=== PATIENT | male | born 1970 | race Caucasian/White ===

== ENCOUNTER 2020-12-25 08:11 | Observation (INO) | payer MEDICAID, SELFPAY ==
[2020-12-25] VITALS (44 sets, daily range): BP systolic 123–211; BP diastolic 69–123; PULSE 91–114; RESP 16–22; TEMP 36.4–37.5; O2SAT 93–97; BMI 37.0
--- NOTE | ~2020-12-25 | XR_ITS ---
XR chest 1V portable DATE: 12/25/2020 08:46 INDICATION: Cough. Covid-positive. TECHNIQUE: Portable upright AP chest on 12/25/2020 at 0836 hours COMPARISON: None FINDINGS: There are patchy bilateral central and lower lung zone infiltrates, greatest in the left artie ng base. Heart size appears borderline. There is aortic calcification and mild unfolding. Pulmonary vascular congestion and redistribution or suggested. There is minimal if any pleural effusion. No pneumothorax. Degenerative spurring of the thoracic spine. IMPRESSION: Bilateral relatively central and lower lung zone infiltrates; diffusion diagnosis include s pneumonia and/or congestive heart failure/pulmonary edema. Reviewed, dictated and finalized at location A. IMPRESSION: Bilateral relatively central and lower lung zone infiltrates; diffu rupesh diagnosis includes pneumonia and/or congestive heart failure/pulmonary francisco j art.
--- NOTE | ~2020-12-25 | CT_ITS ---
EXAMINATION: CTA chest PE protocol DATE: 12/25/2020 10:54 INDICATION: Shortness of breath, elevated d-dimer. Covid-positive. TECHNIQUE: Computed tomography angiography (CTA) of the chest was performed with 100 mL Omnipaque-350 intravenous contrast timed to evaluate the pulmonary arteries. Coronal maximum intensity projection 3D-reconstructions were created by the technologist. Automated exposure control and iterative reconst ruction technique were employed. Exam dose: 1000.58 mGy-cm total exam DLP. COMPARISON: 12/25/2020 portable AP chest FINDINGS: Despite second contrast material injection there is only moderate opacification of the pulm onary arteries. No detectable central pulmonary embolism is noted. The peripheral pulmonary nodule no t optimally demonstrated due to suboptimal contrast opacification and motion. No thoracic aortic aneurysm or dissection. Heart size is normal. No pericardial or pleural effusion. There is mild likely reactive hilar and mediastinal lymph node prominence. There are scattered bilateral patchy pulmonary infiltrates involving all lobes, most severe in the le ft lower lobe, likely due to multifocal Covid pneumonia. No suspicious osteolytic or osteoblastic lesions are noted. IMPRESSION: Limited examination; no central pulmonary embolism is identified. Peripheral pulmonary n odule optimally evaluated Multifocal bilateral pulmonary infiltrates, likely secondary to Covid pneumonia Reviewed, dictated and finalized at Location A. Reviewed, dictated and finalized at location A. IMPRESSION: Limited examination; no central pulmonary embolism is identified. Peripheral pulmonary nodule optimally evaluated Multifocal bilateral pulmonary infiltrates, likely secondary to Covid pneumonia
--- NOTE | ~2020-12-25 | CT_ITS ---
EXAMINATION: CT abdomen pelvis wo con DATE: 12/25/2020 13:46 INDICATION: Flank pain. Nausea and vomiting. Covid-positive. TECHNIQUE: Computed tomography (CT) of the abdomen and pelvis was performed without intravenous contr ast. Automated exposure control and iterative reconstruction technique were employed. Exam dose: 142 7.41 mGy-cm total exam DLP. COMPARISON: None. FINDINGS: There are patchy infiltrates of the middle lobe and lingula and prominent patchy consolidat ing infiltrates in both lower lobes, left greater than right. Normal heart size. No pericardial or pleural effusion. There is diffuse hepatic steatosis with minimal sparing adjacent to the gallbladder. No hepatic space -occupying mass lesion is detected. The gallbladder is present. There is relatively high density cont ent within the gallbladder lumen. Consider ultrasound for further evaluation as clinically appropriat e. No pericholecystic fluid or fat stranding. No bile duct or pancreatic duct dilatation. No pancreat ic mass lesion or calcification. Normal splenic size. Normal morphology of the adrenal glands. Approximately 11 mm upper pole left renal probable cyst. No other renal mass lesion or urinary tract calculus or hydroureteronephrosis is detected. There is mucosal trabeculation and minimal diverticulum formation of the urinary bladder. Normal caliber of the abdominal aorta. No intraperitoneal or retroperitoneal or pelvic mass lesion or adenopathy or ascites. Normal appendix. No bowel obstruction, bowel wall thickening, pneumatosis or intraperitoneal free air . Small bilateral fat-containing inguinal hernias. Degenerative spurring of the thoracic and lumbar spine. No suspicious osteolytic or osteoblastic lesi ons. The IMPRESSION: Bilateral multifocal pneumonia Hepatic steatosis 11 mm upper pole left renal probable cyst Reviewed, dictated and finalized at Location A. Reviewed, dictated and finalized at location A.
--- NOTE | 2020-12-25 08:26 | ECG_ITS ---
Measurements Intervals [place] Rate: 108 P: 48 AL: 141 QRS: 254 QRSD: 154 T: -8 QT: 363 QTc: 487 Interpretive Statements SINUS TACHYCARDIA RIGHT AXIS DEVIATION RIGHT BUNDLE BRANCH BLOCK BASELINE WANDER- AVF, V3 ABNORMAL ECG Electronically Signed On 12-25-2020 13:28:21 CDT by Kp Valenzuela D.O.
--- NOTE | 2020-12-25 08:30 | PC.NURSE ---
pt mother came to room with pt. advised that pt could have no visitor due to pt being positive covid. mother responded with tough titties . made aware that she would have to leave facility. pt argued with rn that she lives with pt and should be allowed to stay. edp also told mother that she would have to leave room due to pt being covid positive. mother voiced disrespect for chapis kristel. made aware of hospital policies and pt left room. discharge planner aware.
[2020-12-25 08:39] LABS: Basophils Percent Auto 0.2 % (0.2-1.2); Hematocrit 44.3 % (42.0-52.0); Hemoglobin 15.4 g/dL (14.0-18.0); Immature Granulocyte Absolute 0.01 K/mm3 (0.00-0.031); Immature Granulocyte Percent A 0.2 % (0-0.5); Lymphocytes Absolute Auto 0.62 K/mm3 (0.9-3.2); Lymphocytes Percent Auto 12.6 % (18.3-44.2); Mean Corpuscular HGB Conc 34.8 g/dl (32-36); Mean Corpuscular Hemoglobin 30.7 pg (26-34); Mean Corpuscular Volume 88.4 fl (80-100); Monocytes Absolute Auto 0.1 K/mm3 (0.1-0.6); Monocytes Percent Auto 2.6 % (2.6-8.5); Neutrophils Absolute Auto 4.2 K/mm3 (1.3-6.7); Neutrophils Percent Auto 84.4 % (45.5-73.1); Platelet Count Result 156 k/mm3 (150-375); Red Blood Count 5.01 M/mm3 (4.6-6.20); Red Cell Distribution Width 12.2 % (11.5-14.5); White Blood Count 4.9 K/mm3 (4.5-10.0)
[2020-12-25 08:49] LABS: INR 0.9; Prothrombin Time 11.9 Seconds (11.1-14.7)
[2020-12-25 08:50] LABS: Partial Thromboplastin Time 26.7 SECONDS (22.3-36.8)
[2020-12-25 09:00] LABS: Troponin I < 0.012 ng/mL (0.000-0.034)
--- NOTE | 2020-12-25 09:00 | ED.GENADULT ---
HPI - General Adult General Chief complaint: Chest Pain Stated complaint: vomting/dizzy Time Seen by Provider: 12/25/20 08:14 Source: patient and RN notes reviewed Mode of arrival: ambulatory Limitations: no limitations History of Present Illness HPI narrative: This is a 50 year old COVID + male who presents for evaluation of multiple complaints. He states he was exposed to covid at work so he was tested on Saturday, and he was found to be positive. He was asymptomatic at that time but he developed symptoms 2 days later. Over the past couple of days he reports fatigue, cough, right flank pain and diarrhea. He developed left chest pressure that is nonradiating last night and it has been constant. He started having nausea , vomiting dizziness this morning. He states his initial episodes of emesis was nonbloody , nonbilious. He reports afterwards his emesis is coffee ground. His last bowel movement was last night and he denies melena or blood in his stool. He has not seen doctor in 20 years . Related Data Home Medications Medication Instructions Recorded Confirmed No Home Medications 12/25/20 12/25/20 Allergies Allergy/AdvReac Type Severity Reaction Status Date / Time cranberries Allergy Mild headache, Uncoded 12/25/20 17:18 [email or web address] Allergy Mild Headache Uncoded 12/25/20 17:18 Review of Systems Review of Systems: All systems reviewed & are unremarkable except as noted in HPI and below Constitutional: Constitutional: Reports fever(s) ENT: Reports nasal congestion Cardiovascular: Cardiovascular: Reports chest pain Respiratory: Respiratory: Reports chest congestion, Reports cough and Reports dyspnea Gastrointestinal: Gastrointestinal: Denies abdominal pain, Reports diarrhea, Reports nausea and Reports vomiting Neurologic: Reports dizziness and Denies focal weakness [facility] Past Medical History Medical History (Updated 12/25/20 @ 18:58 by Hyacinth Mensah MD) Patient denies medical problems Surgical History Surgical History (Updated 12/25/20 @ 09:02 by Hyacinth Mensah MD) No significant past surgical history Family History Family History (Updated 12/25/20 @ 09:01 by Hyacinth Mensah MD) Father Heart disease Social History Social History (Updated 12/25/20 @ 15:43 by Maria Del Carmen Sewell PA-C) Social History: Patient lives in [place]. He is not currently employed. Nonsmoker. Smoking status: Never smoker Alcohol intake: current Drinks per week: 2 Substance use: never Gender identity (if verbalized by the patient): Male Spiritual care concerns: No Exam Const: General: no acute distress and alert Orientation/consciousness: patient oriented x3 Eyes: EOM: EOMs intact bilaterally Resp: Effort & Inspection: normal respiratory effort and no retractions Auscultation: clear to auscultation bilaterally Cardio: Rate: tachycardic Rhythm: regular rhythm Heart sounds: no murmurs GI: GI Palp: Yes Soft to palpation, Yes Tenderness to palpation present (GI) (LLQ), No Guarding due to palpation present (GI) and No Rigid due to palpation Auscultation: normal bowel sounds Skin: General skin exam: normal color Rashes: no rashes Neuro: General: patient oriented x3, moves all extremities and CN's II-XI intact bilaterally Extrem: General: normal to inspection Psych: Mental Status: mental status grossly normal Affect: normal affect Course Reevaluation(s) Reevaluation #1: Patient continues to complain of flank pain. UA is normal. He does have significant covid. He understands he will be admitted. Date: 12/25/20 Time: 12:30 Consultations Consultation #1: I Discussed case with Maria Del Carmen Sewell. She accepts this patient with covid pneumonia, left chest pain with high risk factors. She accepts patient to IMU Date: 12/25/20 Time: 12:45 Vital Signs Vital signs: Vital Signs Pulse Rate 107 H 12/25/20 08:23 Respiratory Rate 19 12/25/20 08:23 Temperature 99.
[2020-12-25 09:06] LABS: Alanine Aminotransferase 65 U/L (4-50); Albumin Level 4.4 g/dL (3.5-5.1); Alkaline Phosphatase 88 U/L (38-126); Anion Gap 11 mmol/L (8-16); Aspartate Amino Transferase 48 U/L (17-59); Bilirubin,Total 0.7 mg/dL (0.2-1.3); Blood Urea Nitrogen 13 mg/dL (9-20); Carbon Dioxide 22 mmol/L (22-30); Chloride 100 mmol/L (98-107); Estimated CRCL calculation 128 ml/min; Estimated Glomerular Filt Rate > 60; Glucose 199 mg/dL (65-110); Lipase 91 U/L (23-300); Magnesium 1.6 mg/dL (1.6-2.3); Potassium 3.9 mmol/L (3.4-5.0); Sodium 133 mmol/L (137-145)
[2020-12-25] MEDS: SODIUM CHLORIDE 0.9% IV 1,000 ML 999 ML IV CONT (09:19)
[2020-12-25] MEDS: MORPHINE SULFATE (*CRX) 4 MG/ML INJ IV PUSH ×2 (09:19→12:53)
[2020-12-25] MEDS: ONDANSETRON INJ 4 MG/2 ML VIAL IV PUSH ×2 (09:19→12:53)
[2020-12-25 09:32] LABS: Add Urine Microscopic? YES; Appearance Urine Clear (Clear); Bilirubin Urine Negative (Negative); Blood Urine 1+ (Negative); Color Urine Amber (Yellow); Glucose Urine UA 1+ mg/dL (Negative); Ketones Urine 2+ mg/dL (Negative); Leukocyte Esterase Ur Negative LEU/UL (Negative); Mucus Urine Rare /lpf; Nitrate Urine Negative (Negative); Protein Urine 3+ mg/dL (Negative); RBC Urine 0-2 /hpf (0-2); Urobilinogen Urine Negative mg/dL (<2.0); WBC Urine 0-3 /hpf
[2020-12-25] MEDS: PANTOPRAZOLE SODIUM IV 40 MG VIAL IV PUSH ×2 (09:36→17:23)
[2020-12-25 10:05] LABS: Specific Grav Ur 1.031 (1.001-1.035)
[2020-12-25 10:06] LABS: D Dimer 0.67 ug/mL (<0.48)
--- NOTE | 2020-12-25 12:35 | PC.NURSE ---
walked around the nurses station with ambulatory pulse ox and pt. saturated at 91 the entire lap.
[2020-12-25 12:41] LABS: Troponin I 0.014 ng/mL (0.000-0.034)
[2020-12-25] MEDS: NITROGLYCERIN SL 0.4 MG TABLET SUBLINGUAL (12:53)
--- NOTE | 2020-12-25 13:00 | PC.NURSE ---
pt continues to note dizziness upon standing. states back pain much improved from 11/12 to 06/15. intermittent nausea. only noting chest pain with deep inspiration.
--- NOTE | 2020-12-25 15:30 | PM.IMHP ---
H&P: HPI History of Present Illness Date/Time: 12/25/20 15:30 Chief Complaint: Chest pain. Narrative: This is a 50-year-old male with no known medical history although he has not seen a physician for over 20 years who presented to the emergency department earlier today via private vehicle for evaluation of chest pain. He has not felt well for quite a week and tested positive for COVID-19 this past Saturday. His symptoms have consisted mainly of fatigue, chills, sweats, diarrhea, occasional cough, and right-sided pain that he has a difficult time describing. Last evening he developed mild, left anterior chest pressure which was pretty consistent thus he came in for evaluation today. This morning he also reports nausea with a couple of episodes of emesis as well as dizziness and he thinks that the last episode of emesis looked like coffee grounds. CTA of the chest was ordered to evaluate for possible pulmonary embolism and that was negative for central PE though the study was somewhat limited. Multifocal bilateral pulmonary infiltrates were also noted, likely due to COVID pneumonia. EKG demonstrated a somewhat atypical appearing right bundle branch block pattern but troponins have been negative x3. With further questioning he does mention that he has had 3 episodes of ?feeling like my heart stops, then it races for a while? over the past several years. It is not necessarily related to activity he does not think that his heart rate was irregular. He denies exertional chest pain and shortness of breath. His father of a heart attack in his early 50s. He has no known history of hypertension (blood pressures have been consistently in the 150s to 170 systolic) or diabetes (random glucose was 199). He was not vaccinated for COVID. Review of Systems Review of Systems: Twelve systems were reviewed with pertinent positives and negatives as per HPI. No headache. He denies auditory and visual changes. No focal weakness or paresthesias. No syncope or near syncope. No known history of cardiac dysrhythmia. He denies orthopnea. Reports occasional PND. No known history of sleep apnea. Denies blurry vision, polydipsia, and polyuria. No paresthesias. No dysuria or hematuria. No melena or hematochezia. Except as documented, all other systems were reviewed and are negative. [facility] Past Medical History Medical History Patient denies medical problems Surgical History Surgical History No significant past surgical history Family History Family History (Updated 12/25/20 @ 23:11 by Maria Del Carmen Sewell PA-C) Father Heart disease Acute myocardial infarction Social History Social History (Updated 12/25/20 @ 23:11 by Maria Del Carmen Sewell PA-C) Social History: The patient lives in [place]. 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 Nonsmoker. No alcohol or illicit substance abuse. He designates his mother, Rose Qureshi, as his surrogate decision maker. Code status: Full code. Meds Home Medications and Allergies Home Medications Medication Instructions Recorded Confirmed Type No Home Medications 12/25/20 12/25/20 History Allergies Allergy/AdvReac Type Severity Reaction Status Date / Time cranberries Allergy Mild headache, Uncoded 12/25/20 17:18 [email or web address] Allergy Mild Headache Uncoded 12/25/20 17:18 Vital Signs Vital Signs - 24 hr 12/25/20 08:23 12/25/20 08:24 12/25/20 08:30 Temperature 97.6 F Pulse Rate 107 H 107 H 107 H Respiratory Rate 19 22 H Blood Pressure 178/118 H 178/118 H Pulse Oximetry 94 12/25/20 08:31 12/25/20 08:45 12/25/20 08:46 Temperature Pulse Rate 109 H 113 H 113 H Respiratory Rate Blood Pressure 170/114 H 165/109 H Pulse Oximetry 12/25/20 08:48 12/25/20 09:00 12/25/20 09:15 Temperature Pulse Rate 108 H 114 H 110 H Respiratory Rate Blood Pressure Pulse Oximetry 12/25/20 09:30 12/25
[2020-12-25 16:56] LABS: Lactate Dehydrogenase 696 U/L (313-618)
--- NOTE | 2020-12-25 17:03 | ADMGEN ---
This patient, Thanh Qureshi, was admitted to IMU Room 209-01. Patient/family oriented to hospital policies and general routines including ID bracelet, bed and alarms, visiting hours, pain management, procedures, bathroom and other care routines, personal items, smoking policy, room service/diet, and visiting hours. Information on how to activate the Rapid Response Team has been discussed. Patient/Family are encouraged to report perceived risks to care and to ask questions if they do not understand what they are told or what they should do.
[2020-12-25 17:04] LABS: Hemoglobin A1C 7.8 % (<5.7)
[2020-12-25] MEDS: SODIUM CHLORIDE 0.9% IV 1,000 ML 125 ML IV CONT (17:19)
[2020-12-25] MEDS: ENOXAPARIN 40 MG/0.4 ML SYRINGE SUB-Q (17:22)
[2020-12-25 17:34] LABS: Procalcitonin 0.2 ng/mL
[2020-12-25 17:40] LABS: Troponin I 0.017 ng/mL (0.000-0.034)
[2020-12-25 20:50] LABS: Glucose Point of Care 161 mg/dl (65-105)
[2020-12-26] VITALS (14 sets, daily range): BP systolic 157–164; BP diastolic 94–97; PULSE 83–101; RESP 18–20; TEMP 36.2–36.9; O2SAT 92–99
[2020-12-26 05:57] LABS: Basophils Percent Auto 0.2 % (0.2-1.2); Hematocrit 40.2 % (42.0-52.0); Hemoglobin 13.3 g/dL (14.0-18.0); Immature Granulocyte Absolute 0.02 K/mm3 (0.00-0.031); Immature Granulocyte Percent A 0.5 % (0-0.5); Lymphocytes Absolute Auto 1.22 K/mm3 (0.9-3.2); Lymphocytes Percent Auto 28.3 % (18.3-44.2); Mean Corpuscular HGB Conc 33.1 g/dl (32-36); Mean Corpuscular Hemoglobin 30.6 pg (26-34); Mean Corpuscular Volume 92.6 fl (80-100); Monocytes Absolute Auto 0.2 K/mm3 (0.1-0.6); Monocytes Percent Auto 3.7 % (2.6-8.5); Neutrophils Absolute Auto 2.9 K/mm3 (1.3-6.7); Neutrophils Percent Auto 67.3 % (45.5-73.1); Platelet Count Result 170 k/mm3 (150-375); Red Blood Count 4.34 M/mm3 (4.6-6.20); Red Cell Distribution Width 12.4 % (11.5-14.5); White Blood Count 4.3 K/mm3 (4.5-10.0)
[2020-12-26 06:13] LABS: Alanine Aminotransferase 50 U/L (4-50); Albumin Level 3.6 g/dL (3.5-5.1); Alkaline Phosphatase 69 U/L (38-126); Anion Gap 9 mmol/L (8-16); Aspartate Amino Transferase 45 U/L (17-59); Bilirubin,Total 0.6 mg/dL (0.2-1.3); Blood Urea Nitrogen 12 mg/dL (9-20); Calcium 8.3 mg/dL (8.4-10.2); Carbon Dioxide 27 mmol/L (22-30); Chloride 95 mmol/L (98-107); Estimated CRCL calculation 133 ml/min; Estimated Glomerular Filt Rate > 60; Glucose 147 mg/dL (65-110); Potassium 3.6 mmol/L (3.4-5.0); Sodium 131 mmol/L (137-145)
[2020-12-26 08:50] LABS: Glucose Point of Care 172 mg/dl (65-105)
[2020-12-26] MEDS: PANTOPRAZOLE SODIUM IV 40 MG VIAL IV PUSH ×2 (09:50→17:21)
[2020-12-26 12:29] LABS: Glucose Point of Care 131 mg/dl (65-105)
--- NOTE | 2020-12-26 15:45 | ECHO_ITS ---
Patient Info Name: Thanh Qureshi Age: 50 years : 1970 Gender: Male Ht: 72 in Wt: 249 lbs BSA: 2.43 m2 HR: 91 bpm BP: 163 / 94 mmHg Heart Rhythm: Sinus Rhythm Exam Date: 12/26/2020 10:31 AM Exam Location: [facility] Patient Status: Inpatient Admit Date: 12/25/2020 Staff Ordering Physician: Maria Del Carmen Sewell PA-C Director Of Compensation: Josh Edwards RDCS, RT Attending Provider: Lj Toscano MD Referring Physician: Melodie HOGUE; Exam Type: CA echo doppler color flow Study Info Indications R07.9 - Chest pain, unspecified Complete two-dimensional, color flow and Doppler transthoracic echocardiogram is performed. Strain analysis performed. Summary 1. Complete two-dimensional, color flow and Doppler transthoracic echocardiogram is performed. 2. Strain analysis performed. 3. Left ventricular chamber dimension is normal. 4. Left ventricular systolic function is normal, estimated at 60-65%. 5. There is moderately increased left ventricular wall thickness. 6. The left ventricular diastolic function is grade I diastolic dysfunction. 7. Global longitudinal strain is abnormal at -10 %. 8. Dilated inferior vena cava with <50% collapse upon inspiration consistent with elevated right atrial pressure, 15 mmHg. Left Ventricle Left ventricular chamber dimension is normal. Left ventricular systolic function is normal, estimated at 60-65%. There is moderately increased left ventricular wall thickness. The left ventricular diastolic function is grade I diastolic dysfunction. Global longitudinal strain is abnormal at -10 %. Right Ventricle Right ventricular chamber dimension is normal. Right ventricular systolic function is normal. Left Atria Left atrial chamber dimension is normal. Right Atria Right atrial chamber dimension is normal. Atrial Septum Intact interatrial septum visualized by color flow imaging. Aortic Valve The aortic valve is trileaflet. There is no aortic valve sclerosis. There is no aortic valve stenosis. There is trace aortic valve regurgitation. Pulmonic Valve The pulmonic valve is not well visualized. There is no pulmonic valve stenosis. There is trace pulmonic regurgitation. Mitral Valve The mitral valve has normal leaflets. There is no mitral valve stenosis. There is trace mitral valve regurgitation. Tricuspid Valve The tricuspid valve leaflets are normal. There is no significant tricuspid valve stenosis. There is trace tricuspid valve regurgitation. Pericardium/Pleural The pericardium appears normal. There is no pericardial effusion. Inferior Vena Cava Dilated inferior vena cava with <50% collapse upon inspiration consistent with elevated right atrial pressure, 15 mmHg. Aorta The aortic root size at the sinus of Valsalva is normal. The prox ascending aorta size is normal. Left Ventricular Outflow Tract Name Value Normal LVOT 2D LVOT Diameter 2.1 cm LVOT Doppler LVOT Peak Gradient 5 mmHg LVOT Mean Gradient 3 mmHg LVOT VTI 19 cm
--- NOTE | 2020-12-26 17:19 | PM.IMPN ---
Progress Note: A&P Assessment and Plan (1) Pneumonia due to COVID-19 virus: Code(s): U07.1 - COVID-19; J12.82 - Pneumonia due to coronavirus disease 2019 Status: Acute Assessment and Plan: No indication for antibiotics. At this time he has no oxygen requirement thus is not a candidate for dexamethasone or remdesivir. continue to monitor respiratory status (2) Chest pain: Code(s): R07.9 - Chest pain, unspecified Status: Acute Assessment and Plan: Most likely related to pneumonia. No evidence of central pulmonary emboli on imaging though study was limited. PE is felt to be less likely but CTA could be repeated if his chest pain returns or he has worsening shortness of breath. no st changes on EKG, flat troponins. Wells 0, CTA not indicated (3) Abnormal EKG: Code(s): R94.31 - Abnormal electrocardiogram [ECG] [EKG] Status: Acute Assessment and Plan: EKG shows a right bundle branch block with somewhat unusual changes. Troponin has been negative x3. Given family history will obtain echocardiogram. (4) Hyperglycemia: Code(s): R73.9 - Hyperglycemia, unspecified Status: Acute Assessment and Plan: Random glucose is nearly 200 with 1+ glucose in the urine. Check fasting level and hemoglobin A1c. (5) Elevated blood pressure reading: Code(s): R03.0 - Elevated blood-pressure reading, without diagnosis of hypertension Status: Acute Assessment and Plan: I suspect the patient has underlying hypertension, most recent blood pressure was 148/69. Will continue to monitor overnight but he will likely need to be started on antihypertensives. (6) Suspected sleep apnea: Code(s): R29.818 - Other symptoms and signs involving the nervous system Status: Acute Assessment and Plan: Apnea link ordered. Additional Plan likely discharge tomorrow in am if continuing to tolerate room air Time Spent With Patient Time with patient: less than 15 minutes Subjective Date/time seen: 12/26/20 17:19 no acute medical complaints. No breathing difficulty Review of Systems Review of Systems: All systems reviewed & are unremarkable except as noted in HPI and below ROS unobtainable: Yes unobtainable due to mental status Exam Const: General: no acute distress Neck: Neck: no JVD Cardio: Rate: regular rate Rhythm: regular rhythm GI: GI Palp: Yes Soft to palpation and No Tenderness to palpation present (GI) Objective Data Vital Signs Vital Signs: Vital Signs - 24 hr 12/25/20 18:00 12/25/20 20:00 12/25/20 22:00 Temperature 97.6 F Pulse Rate 92 95 91 Respiratory Rate 20 Blood Pressure 148/69 H Pulse Oximetry 93 12/25/20 23:34 12/26/20 00:00 12/26/20 02:00 Temperature 98.7 F Pulse Rate 92 85 101 H Respiratory Rate 20 Blood Pressure 144/69 H Pulse Oximetry 95 93 12/26/20 03:08 12/26/20 04:00 12/26/20 06:00 Temperature 97.4 F L Pulse Rate 92 99 Respiratory Rate 18 Blood Pressure 163/94 H Pulse Oximetry 94 96 12/26/20 07:06 12/26/20 08:00 12/26/20 09:04 Temperature 97.9 F Pulse Rate 86 86 Respiratory Rate 18 Blood Pressure 164/97 H Pulse Oximetry 99 92 12/26/20 10:00 12/26/20 12:00 12/26/20 12:51 Temperature 97.1 F L Pulse Rate 99 97 88 Respiratory Rate 20 Blood Pressure 157/94 H Pulse Oximetry 94 12/26/20 14:00 Temperature Pulse Rate 90 Respiratory Rate Blood Pressure Pulse Oximetry Intake/Output Intake/Output: Intake & Output 12/23/20 12/24/20 12/25/20 12/26/20 23:59 23:59 23:59 23:59 Intake Total 1240 1600 Output Total 1000 Balance 1240 600 Meds/Results Medications: Active Medications Generic Name Dose Route Start Last Admin Trade Name Nathanq PRN Reason Stop Dose Admin Acetaminophen 650 mg 12/26/20 17:19 Acetaminophen 325 Mg Tablet PO Q6H PRN Mild Pain (1-3) or Fever Albuterol 2 puff 12/25/20 15
[2020-12-26] MEDS: ENOXAPARIN 40 MG/0.4 ML SYRINGE SUB-Q (17:21)
[2020-12-26] MEDS: ACETAMINOPHEN 325 MG TABLET 650 MG PO (17:33)
[2020-12-26 17:37] LABS: Glucose Point of Care 177 mg/dl (65-105)
[2020-12-26] MEDS: diphenhydrAMINE HCl CAP 25 MG CAPSULE 50 MG PO (18:00)
[2020-12-26 20:46] LABS: Glucose Point of Care 150 mg/dl (65-105)
--- NOTE | 2020-12-27 06:02 | PCRCNOTE ---
Went to remove Apnealink from pt for download and discovered that he had taken the unit off himself, he stated around 0100. He said he couldn't tolerate it because he was coughing a lot. RN notified.
[2020-12-27 07:30] LABS: Basophils Percent Auto 0.2 % (0.2-1.2); Hematocrit 41.9 % (42.0-52.0); Immature Granulocyte Absolute 0.01 K/mm3 (0.00-0.031); Immature Granulocyte Percent A 0.2 % (0-0.5); Lymphocytes Absolute Auto 1.05 K/mm3 (0.9-3.2); Lymphocytes Percent Auto 23.4 % (18.3-44.2); Mean Corpuscular HGB Conc 33.4 g/dl (32-36); Mean Corpuscular Hemoglobin 30.2 pg (26-34); Mean Corpuscular Volume 90.5 fl (80-100); Mean Platelet Volume 10.7 fl (7.4-10.4); Monocytes Absolute Auto 0.2 K/mm3 (0.1-0.6); Monocytes Percent Auto 5.1 % (2.6-8.5); Neutrophils Absolute Auto 3.2 K/mm3 (1.3-6.7); Neutrophils Percent Auto 71.1 % (45.5-73.1); Platelet Count Result 206 k/mm3 (150-375); Red Blood Count 4.63 M/mm3 (4.6-6.20); Red Cell Distribution Width 12.4 % (11.5-14.5); White Blood Count 4.5 K/mm3 (4.5-10.0)
[2020-12-27 07:40] LABS: Alanine Aminotransferase 57 U/L (4-50); Alkaline Phosphatase 70 U/L (38-126); Anion Gap 7 mmol/L (8-16); Aspartate Amino Transferase 46 U/L (17-59); Bilirubin,Total 0.8 mg/dL (0.2-1.3); Blood Urea Nitrogen 11 mg/dL (9-20); Calcium 8.5 mg/dL (8.4-10.2); Carbon Dioxide 29 mmol/L (22-30); Chloride 99 mmol/L (98-107); Estimated CRCL calculation 119 ml/min; Estimated Glomerular Filt Rate > 60; Glucose 147 mg/dL (65-110); Phosphorus 3.2 mg/dL (2.5-4.5); Potassium 3.4 mmol/L (3.4-5.0); Sodium 135 mmol/L (137-145)
[2020-12-27 08:00] VITALS: O2SAT 93
[2020-12-27] MEDS: lisinopriL 2.5 MG TABLET PO (09:18)
[2020-12-27 09:21] LABS: Glucose Point of Care 153 mg/dl (65-105)
[2020-12-27] MEDS: PANTOPRAZOLE SODIUM IV 40 MG VIAL IV PUSH (09:22)
[2020-12-27] MEDS: ACETAMINOPHEN 325 MG TABLET 650 MG PO (09:27)
[2020-12-27 09:33] VITALS: BP 162/95; PULSE 83; RESP 20; TEMP 37.1; O2SAT 93
[2020-12-27 11:30] VITALS: BP 156/103
--- NOTE | 2020-12-27 16:36 | P.DS_ITS ---
DS: Admitting Diagnosis Admitting Diagnosis chest pain DS: Discharge Diagnosis Discharge Diagnosis (1) Pneumonia due to COVID-19 virus: Code(s): U07.1 - COVID-19; J12.82 - Pneumonia due to coronavirus disease 2019 Status: Acute DS: Summary Hospital Course Hospital Course: 50yo male with no diagnosed medical history presenting to the hospital for chest pain. Patient recently tested positive for COVID at outside facility and has been having fevers and cough along with associated rt sided chest pain intermittently over the last few days. In conjunction with the fact that he has intermittent headaches and lower back pain, this is all indicative of myalgias related to COVID. Furthermore, EKG and troponins not indicative of ACS, and pain is not exertional. Also, Wells score is 0, and CT angio showoing no PE. As patient is breathing on room air, he doese not qualify for dexamethasone or remdesivir. He needs some steady outpatient care, as his a1c is in range for prediabetes, and he likely has undiagnosed underlying HTN. We started him on a small dose of lisinopril and instructed to follow with PCP. Status at Discharge Functional status at discharge: independent ambulation Overall status at discharge: patient is progressing back to baseline Time Spent with Patient Time attestation: Total time spent providing and/or coordinating discharge serv ices: Time spent: Less than 30 minutes Exam Const: General: no acute distress Neck: Neck: no JVD Resp: Effort & Inspection: normal respiratory effort Auscultation: clear to auscultation bilaterally Cardio: Rate: regular rate Rhythm: regular rhythm GI: GI Palp: Yes Soft to palpation and No Tenderness to palpation present (GI) Discharge Plan Discharge Attending physician on discharge: Radha Thurman Consulting providers: Jocelyn Mack ; Maria Del Carmen Sewell ; Kp Valenzuela ; Yosi Weems Discharging Clinician: Radha Thurman Patient Disposition: Home, Self-Care Activity: no straining and as tolerated Diet: as tolerated and heart healthy Patient Instructions: Droplet Precautions (GEN), COVID-19 (Coronavirus Disease 2019) (DC), COVID-19: Slow the Coronavirus Spread (DC), Face Coverings (Masks) and COVID-19 (DC), How to Recover from COVID-19 at Home (GEN), Social Distancing Guidelines for COVID-19 (GEN) Stand Alone Forms: General Discharge Information Follow-up/Referrals: Jocelyn Mack DO [Physician] - Call for Appointment Discharge Medications: New acetaminophen [Mapap (acetaminophen)] 325 mg Tablet 650 mg PO Q6H PRN (Reason: Mild Pain (1-3) Or Fever) 10 Days Qty: 40 RF: 0 lisinopril 2.5 mg Tablet 2.5 mg PO QAM Qty: 30 RF: 0 Date of admission: 12/25/20 13:16 Primary Care Provider: PHYSICIAN,STRADDLE CARRIER OPERATOR Admitting Provider: Lj Toscano Attending physician on admission: Radha Thurman Condition: Stable Quality VTE Prophylaxis VTE prophylaxis: pharmacologic ordered
== END 2020-12-27 13:45 | disposition home or self-care (01) ==
LOC: ANHED 14:13 → ANHIMU 18:58
PROVIDERS: Physician Assistant; Admitting Provider Internal Medicine Nephrology; Emergency Provider General Practice; Visit Provider Internal Medicine
DX: U07.1 COVID-19 (principal); J12.82 Pneumonia due to coronavirus disease 2019; R07.9 Chest pain, unspecified; R94.31 Abnormal electrocardiogram [ECG] [EKG]; R03.0 Elevated blood-pressure reading, without diagnosis of hypertension; R73.9 Hyperglycemia, unspecified
CPT/HCPCS: 36415; 71045; 71275; 74176; 80053; 81001; 82728; 82948; 83036; 83615; 83690; 83735; 84100; 84145; 84484; 85025; 85380; 85610; 85730; 86140; 86850; 86900; 86901; 93005; 93306; 94762; 96361; 96372; 96374; 96375; 96376; 99285; A9270; C9113; G0378; G0379; J1650; J2270; J2405; J7030; Q9967